=== PATIENT | male | born 1945 | race Caucasian/White ===

== ENCOUNTER 2022-04-16 18:49 | Outpatient (CLI) | payer MEDICARE, OTHER ==
--- NOTE | 2022-04-17 14:07 | XRAY Report ---
PROCEDURE: Knee 4 View RT INDICATIONS: R KNEE PX TECHNIQUE: 3 views of the right knee(s) were acquired. COMPARISON: None. FINDINGS: Bones: No fractures or dislocations. No suspicious bony lesions. Soft tissues: Moderate joint effusion present. Atherosclerotic vascular calcification present. IMPRESSION: Moderate joint effusion Reviewed by: Teo Cade MD on 04/17/2022 1:05 PM [facility]DT Approved by: Teo Cade MD on 04/17/2022 1:05 PM AKDT Station ID: [id number]
== END 2022-04-16 23:59 | disposition home or self-care (01) ==
LOC: DI.N 18:49
PROVIDERS: ATTEND Registered Nurse
DX: M25.561 Pain in right knee (principal); M25.461 Effusion, right knee